=== PATIENT | female | born 1960 | race Hispanic/Latino ===

== ENCOUNTER 2017-07-16 13:04 | Emergency (ER) | payer MEDICARE ==
[~2017-07-16] VITALS: Ht 149.9 cm; Wt 45.4 kg
[2017-07-16] MEDS ORDERED: FLUORESCEIN SOD(OPTH) 1 MG STRP OP ONE (14:00)
[2017-07-16] MEDS ORDERED: TETRACAINE HCL 0.5% OPTH SOLN 4 ML BTL OP ONE (14:00)
[2017-07-16 15:46] VITALS: BP 125/71
== END 2017-07-16 15:49 | disposition home or self-care (01) ==
LOC: ER 13:04
DX: B02.9 Zoster without complications (principal)
CPT/HCPCS: 99283